=== PATIENT | female | born 1945 | race Caucasian/White ===

== ENCOUNTER → 2016-04-30 | Outpatient (CLI) | payer OTHER | END | disposition home or self-care (01) | LOC: CFH 12:45 | PROVIDERS: ATTEND Internal Medicine Nephrology | DX: I12.9 Hypertensive chronic kidney disease with stage 1 through stage 4 chronic kidney disease, or unspecified chronic kidney disease (principal); E11.22 Type 2 diabetes mellitus with diabetic chronic kidney disease; N18.3 Chronic kidney disease, stage 3 (moderate) | CPT/HCPCS: 76770 ==

== ENCOUNTER → 2016-05-14 | Outpatient (CLI) | payer OTHER | END | disposition home or self-care (01) | LOC: CFH 11:59 | PROVIDERS: ATTEND Genetic Counselor, MS | DX: Z13.820 Encounter for screening for osteoporosis (principal); M85.89 Other specified disorders of bone density and structure, multiple sites | CPT/HCPCS: 77080 ==

== ENCOUNTER → 2016-10-25 | Outpatient (CLI) | payer OTHER | END | disposition home or self-care (01) | LOC: CFH 09:13 | PROVIDERS: ATTEND Internal Medicine Cardiovascular Disease | DX: I71.9 Aortic aneurysm of unspecified site, without rupture (principal) | CPT/HCPCS: 93978 ==

== ENCOUNTER → 2017-12-09 | Outpatient (CLI) | payer OTHER | END | disposition home or self-care (01) | LOC: CFH 14:00 | PROVIDERS: ATTEND Genetic Counselor, MS | DX: Z12.31 Encounter for screening mammogram for malignant neoplasm of breast (principal) | CPT/HCPCS: 77063; 77067 ==

== ENCOUNTER → 2019-02-01 | Outpatient (CLI) | payer MEDICARE | END | disposition home or self-care (01) | LOC: CVU 06:47 | PROVIDERS: ATTEND Internal Medicine Cardiovascular Disease | DX: I08.3 Combined rheumatic disorders of mitral, aortic and tricuspid valves (principal); I65.23 Occlusion and stenosis of bilateral carotid arteries | CPT/HCPCS: 93306; 93880 ==

== ENCOUNTER → 2019-02-19 | Outpatient (CLI) | payer MEDICARE ==
[~2019-02-19] MED LIST: REGADENOSON 0.4 MG/5 ML SYRINGE ONE
== END | disposition home or self-care (01) ==
LOC: CFH 08:13
PROVIDERS: ATTEND Internal Medicine Cardiovascular Disease
DX: E78.2 Mixed hyperlipidemia (principal); I65.23 Occlusion and stenosis of bilateral carotid arteries; I35.1 Nonrheumatic aortic (valve) insufficiency; I25.10 Atherosclerotic heart disease of native coronary artery without angina pectoris
CPT/HCPCS: 75571; 78452; 93017; A9502; J2785

== ENCOUNTER 2019-12-10 18:58 | Emergency (ER) | payer MEDICARE ==
[~2019-12-10] VITALS: Ht 160 cm; Wt 80.0 kg
--- NOTE | 2019-12-10 20:19 | NUR ---
THIS PT HAD EXPLORITORY ABD SX ON 11/11. PT NOTICED "A LOT OF FLUID" LEAKING FROM WOUND SITE LAST NIGHT. THEN TODAY NOTICED CONTENTS DEHISSING. PT PRESENTS WITH ADIPOSE TISSUE OUTSIDE OF BODY. PT DENIES PAIN. CONTENTS COVERED WITH WET STERILE GAUZE.
[2019-12-10 21:46] VITALS: BP 149/67
--- NOTE | 2019-12-10 21:49 | NUR ---
PT REMAINS IN BED, NADN. AT BEDSIDE. CALL [facility] IN REACH.
== END 2019-12-10 22:08 | disposition short-term general hospital (02) ==
LOC: ED 19:55
DX: T81.30XA Disruption of wound, unspecified, initial encounter (principal)
CPT/HCPCS: 99285